=== PATIENT | male | born 1990 | race Caucasian/White ===

== ENCOUNTER 2019-06-27 18:02 | Emergency (ER) | payer OTHER ==
[2019-06-27] MEDS ORDERED: ACETAMINOPHEN 500 MG TABLET (FP) PO ONE (18:09)
[2019-06-27] MEDS ORDERED: ACETAMINOPHEN 325 MG TABLET (FP) ONE (18:22)
[2019-06-27 18:33] VITALS: BP 120/83; PULSE 56; TEMP 98.7; BMI 25.7
--- NOTE | 2019-06-27 20:27 | PDOC ---
History of Present Illness - General Chief Complaint: Injury Stated Complaint: LEFT ARM PAIN INJURY AT WORK 5 DAYS AGO Time Seen by Provider: 06/27/19 18:04 History Source: Patient Exam Limitations: No Limitations - History of Present Illness Initial Comments: HPI: 28 y/o male presenting to ER complaining of left elbow pain after falling approx. 5ft off a deck at work on Tuesday. Denies striking his head or neck or loss of consciousness. Was ambulatory immediately after the fall. Subsequently developed bruising to the medial aspect of the left elbow. Pain is worse with elbow extension. No difficulty with shoulder, wrist, or hand movements. Denies numbness or tingling. No bleeding. Attempted pain relief with Ibuprofen with minimal effect. Medical Hx: - Pt denies past medical history. Denies prescription medications. Surgical Hx: - Pt denies past surgical history. Review of Systems: In addition to that documented in the HPI above, the additional ROS was obtained : Constitutional: Denies fevers or chills ENMT: Denies sore throat CV: Denies chest pain Resp: Denies SOB GI: Denies vomiting or diarrhea MSK: Per HPI Physical Examination: Constitutional: Well-developed, well-nourished adult male in no acute distress or obvious discomfort. Found sitting upright on edge of hospital bed. Alert and oriented x4. Answered all questions appropriately and completely. Speech was non -labored, non-pressured. Head: Normocephalic. No obvious external signs of trauma. Neck: Supple, trachea is midline. Cardiovascular / Chest: Regular rate and regular rhythm. No murmur, rubs, clicks , or gallops. Peripheral pulses: radial pulses full. No anterior or posterior chest wall tenderness. Respiratory: Breathing unlabored. Equal chest rise and fall. Clear to auscultation bilaterally. No stridor, no wheezing, no rhonchi. Neuro: Alert and oriented. Moving all four extremities spontaneously. MSK: Ecchymosis and generalized tenderness to medial aspect of the left elbow. Intactive pulse, movement, and sensation to left wrist. Normal ROM without tenderness to left shoulder. No skin breaks. Skin: Globally, pink, warm, and dry. Psych: Affect: appropriate. Mood: normal. MDM: *Reviewed vital signs, nursing notes, and prior visit documentation (if available). 28 y/o male presenting for left elbow pain and bruising x 5 days after fall at work. No concerning neurogenic symptoms reported. Afebrile. Vitals unremarkable for hypotension or tachycardia. Physical exam as described above. Plain film of the elbow revealed elevation of anterior fat pad. Unable to adequately visualize radial head as pt was unable to tolerate positioning. Left elbow immobilized with sugar tong splint and shoulder sling. Discussed imaging results with pt. Answered all questions. Provided return precautions. Pt expressed verbal understanding and agreement with plan to discharge home with outpatient orthopedic follow up. Requested to see Dr. Browning. Provided copy of radiology report. Prescribed Naproxen for pain relief. Deshawn Pickett M.D., PGY2 Emergency Medicine Resident Past History - Past Medical History Allergies/Adverse Reactions: Allergies Allergy/AdvReac Type Severity Reaction Status Date / Time No Known Allergies Allergy Unverified 06/27/19 18:03 Home Medications: Ambulatory Orders Naproxen [Naprosyn -] 500 mg PO BID PRN 7 Days #14 tablet 06/27/19 COPD: No Other medical history: DENIES - Suicide/Smoking/Psychosocial Hx Smoking History: Current some day smoker Number of Cigarettes Smoked Daily: 5 Information on smoking cessation initiated: Yes Hx Alcohol Use: Yes (weekends) Drug/Substance Use Hx: No *Physical Exam - Vital Signs Last Vital Signs Temp Pulse Resp BP Pulse Ox 98.7 F 56 L 18 120/83 100 06/27/19 18:03 06/27/19 18:03 06/27/19 18:03 06/27/19 18:03 06/27/19 18:03 Procedures - Splinting Splint Location: Left: Elbow Pre-Proc Neuro Vasc Exam: normal Hand-Made Type: orthoglass Splint Type: Yes: Sugar Tong Post-Proc Neuro Vasc Exam: normal Blake Bandage: yes Sling: Yes Complications: No ED Treatment Course - RADIOLOGY Radiology Studies Ordered: Category Date Time Status ELBOW-LEFT [RAD] Stat Radiology 06/27/19 18:09 Completed - Medications Given in the ED: ED Medications Discontinued Medications Generic Name Dose Route Start Last Admin Trade Name Freq PRN Reason Stop Dose Admin Acetaminophen 975 mg 06/27/19 18:09 06/27/19 18:23 Tylenol - PO 06/27/19 18:10 975 mg ONCE ONE Administration *DC/Admit/Observation/Transfer Diagnosis at time of Disposition: Left elbow pain, Work related injury - Discharge Dispostion Disposition: HOME Condition at time of disposition: Good Decision to Admit order: No - Prescriptions Prescriptions: Naproxen [Naprosyn -] 500 mg PO BID PRN 7 Days #14 tablet PRN Reason: Pain - Referrals Referrals: Bryant Browning MD [Staff Physician] - - Patient Instructions Printed Discharge Instructions: DI for Elbow Pain Additional Instructions: You were seen today for left elbow pain after falling at work on Tuesday. Your x-ray shows you may have a possible bony injury. You were placed in a cast and sling. Follow up with Dr. Browning, an orthopedic doctor, within the next 2-3 days. You will need to call to make an appointment. The number is included in this packet. A copy of todays results are attached to this packet. Take it to the appointment so your doctor can review them. I have sent a prescription for Naproxen to your pharmacy. Take as directed on the package insert. Do not exceed the recommended dosage. Do not take with other NSAID medications such as Ibuprofen, Advil, or Motrin. Go to the nearest emergency department if your condition worsens or you feel like you need additional emergency evaluation. Print Language: SPANISH - Post Discharge Activity Forms/Work/School Notes: Back to Work
== END 2019-06-27 20:36 | disposition home or self-care (01) ==
LOC: FER 18:02
PROC: 2W3DX1Z Immobilization of Left Lower Arm using Splint (ICD-10-PCS; principal; 2019-06-27)
DX: M25.522 Pain in left elbow (principal); F17.210 Nicotine dependence, cigarettes, uncomplicated; W17.89XA Other fall from one level to another, initial encounter; Y93.89 Activity, other specified; Y92.89 Other specified places as the place of occurrence of the external cause; Y99.0 Civilian activity done for income or pay
CPT/HCPCS: 73070-TC-LT-FY; 99281-25